=== PATIENT | male | born 1960 | race Caucasian/White ===

== ENCOUNTER 2017-07-19 16:19 | Observation (INO) | payer OTHER ==
[2017-07-19 23:21] LABS: ADD MAN DIFF? NO
[2017-07-19 23:28] LABS: WHITE BLOOD COUNT 8.1 10^3/ul (4.8-10.8)
[2017-07-19 23:28] LABS: ABNORMAL IP MESSAGE 1; BASOPHILS % 0.2 % (0.0-2.0); EOSINOPHILS % 0.5 % (0.0-7.0); HEMATOCRIT 30.7 % (42.0-52.0); HEMOGLOBIN 10.8 g/dl (14.0-18.0); LYMPHOCYTES # 0.7 10^3/ul (0.8-2.9); MEAN CORPUSCULAR HEMOGLOBIN 34.1 pg (29.0-33.0); MEAN CORPUSCULAR HGB CONC 35.2 g/dl (32.0-37.0); MEAN CORPUSCULAR VOLUME 96.8 fl (82.0-101.0); MEAN PLATELET VOLUME 9.2 fl (7.4-10.4); MONOCYTES % 11.7 % (0.0-11.0); NEUTROPHIL # 6.4 10^3/ul (1.6-7.5); NEUTROPHILS % 78.6 % (39.0-77.0); PLATELET COUNT 99 10^3/UL (140-415); POSITIVE DIFF @See below; RED BLOOD COUNT 3.17 10^6/ul (4.70-6.10); RED CELL DISTRIBUTION WIDTH 15.9 % (11.5-14.5)
[2017-07-19 23:53] LABS: PROTIME 18.4 Sec (11.9-14.9); PT RATIO 1.4
[2017-07-19 23:54] LABS: PARTIAL THROMBOPLASTIN TIME 40.7 Sec (25.0-35.0)
[2017-07-20 00:04] LABS: ALANINE AMINOTRANSFERASE 50 IU/L (13-69); ALBUMIN 2.2 g/dl (3.3-4.9); ALBUMIN/GLOBULIN RATIO 0.44; ALKALINE PHOSPHATASE 343 IU/L (42-121); ANION GAP 14 (8-16); ASPARTATE AMINO TRANSFERASE 312 IU/L (15-46); BILIRUBIN,INDIRECT 1.4 mg/dl (0-1.1); BILIRUBIN,TOTAL 5.2 mg/dl (0.2-1.3); BLOOD UREA NITROGEN 18 mg/dl (7-20); CALCIUM 7.8 mg/dl (8.4-10.2); CARBON DIOXIDE 18 mmol/L (21-31); CHLORIDE 94 mmol/L (97-110); CREATININE 1.19 mg/dl (0.61-1.24); GLUCOSE 71 mg/dl (70-220); LIPASE 187 U/L (23-300); POTASSIUM 4.5 mmol/L (3.5-5.1); SODIUM 121 mmol/L (135-144); TOTAL PROTEIN 7.1 g/dl (6.1-8.1)
[2017-07-20 00:15] LABS: ETHANOL < 10.0 mg/dl
[2017-07-20 02:56] LABS: URINE BLOOD (Dip) POC Negative (NEGATIVE); URINE GLUCOSE (Dip) POC Negative (NEGATIVE); URINE KETONES (Dip) POC Trace (NEGATIVE); URINE LEUKOCYTE EST (Dip) POC Negative (NEGATIVE); URINE NITRITE (Dip) POC Negative (NEGATIVE); URINE TOTAL PROTEIN POC Negative (NEGATIVE)
[2017-07-20] MEDS ORDERED: DOCUSATE SODIUM 100 MG CAP PO (03:30)
[2017-07-20] MEDS ORDERED: ONDANSETRON 4 MG TAB PO (03:30)
[2017-07-20] MEDS ORDERED: ACETAMINOPHEN 325 MG TAB PO (03:30)
[2017-07-20] MEDS ORDERED: NACL 0.9% 3 ML SYG IV (03:30)
[2017-07-20] MEDS: FAMOTIDINE 20 MG TAB PO (10:13)
[2017-07-20 10:18] LABS: WHITE BLOOD COUNT 5.7 10^3/ul (4.8-10.8)
[2017-07-20 10:18] LABS: ABNORMAL IP MESSAGE 1; HEMOGLOBIN 9.4 g/dl (14.0-18.0); MEAN CORPUSCULAR HEMOGLOBIN 35.1 pg (29.0-33.0); MEAN CORPUSCULAR HGB CONC 36.2 g/dl (32.0-37.0); MEAN PLATELET VOLUME 9.3 fl (7.4-10.4); PLATELET COUNT 76 10^3/UL (140-415); POSITIVE DIFF @See below; RED BLOOD COUNT 2.68 10^6/ul (4.70-6.10); RED CELL DISTRIBUTION WIDTH 16.1 % (11.5-14.5)
[2017-07-20 10:25] LABS: ADD MAN DIFF? YES
[2017-07-20 10:42] LABS: AMMONIA < 9 umol/l (9-30)
[2017-07-20 10:47] LABS: ANION GAP 12 (8-16); BLOOD UREA NITROGEN 18 mg/dl (7-20); CALCIUM 7.4 mg/dl (8.4-10.2); CARBON DIOXIDE 21 mmol/L (21-31); CHLORIDE 96 mmol/L (97-110); CREATININE 1.07 mg/dl (0.61-1.24); GLUCOSE 91 mg/dl (70-220); POTASSIUM 4.9 mmol/L (3.5-5.1); SODIUM 124 mmol/L (135-144)
[2017-07-20 11:28] LABS: OSMOLALITY 258 mOsm/kg (280-295)
[2017-07-20 11:28] LABS: ANISOCYTOSIS 2+ (0-0); BAND NEUTROPHILS #M 0.2 10^3/ul (0.0-0.6); BAND NEUTROPHILS % (M) 5 % (0-4); BURR CELLS 1+ (0-0); EOSINOPHILS % (M) 1 % (0-7); LYMPHOCYTES #M 0.4 10^3/ul (0.8-2.9); LYMPHOCYTES % (M) 8 % (15-51); MONOCYTE #M 0.3 10^3/ul (0.3-0.9); MONOCYTES % (M) 6 % (0-11); PLATELET ESTIMATE DECREASED; POIKILOCYTOSIS 1+ (0-0); POLYCHROMASIA 1+ (0-0); SEG NEUT #M 4.6 10^3/ul (1.7-7.5); SEGMENTED NEUTROPHILS (M) % 80 % (39-77); SMUDGE%M 10 % (0-0)
== END 2017-07-20 22:22 | disposition short-term general hospital (02) ==
LOC: MS3 07-20 20:30 → E/R 16:19 → MS3 07-20 02:38
DX: E87.1 Hypo-osmolality and hyponatremia (principal); R18.8 Other ascites; D69.6 Thrombocytopenia, unspecified; D68.9 Coagulation defect, unspecified
CPT/HCPCS: 36415; 80048; 80053; 80306; 81003; 82140; 83690; 83930; 84443; 85025; 85610; 85730; 99285-25